=== PATIENT | female | born 1975 | race African-American/Black ===

== ENCOUNTER 2025-08-07 09:20 | Emergency (ER) | payer MEDICAID, OTHER ==
[~2025-08-07] VITALS: Ht 160 cm; Wt 63.5 kg
[2025-08-07] MEDS: IV NORMAL SALINE 1000 ML BAG IV ONE (10:01)
[2025-08-07 10:25] VITALS: BP 114/78
[2025-08-07] MEDS: METHYLERGONOVINE MALEATE 0.2 MG/ML AMP IM ONE (10:25)
[2025-08-07 10:26] LABS: PLATELET COUNT (AUTO) 215 K/uL (179-408); RED BLOOD CELL COUNT(AUTO) 3.21 MIL/uL (3.63-4.92); RED CELL DISTRIBUTION WIDTH 20.4 % (12.3-17.7); WHITE BLOOD COUNT (AUTO) 18.2 K/uL (3.8-11.8)
[2025-08-07 10:28] LABS: CREATININE 0.8 mg/dL (0.6-1.3); SODIUM SERUM 133.0 mmol/L (136-145); UREA NITROGEN, BLOOD 14.0 mg/dL (7-18)
[2025-08-07] MEDS ORDERED: MAGNESIUM SULFATE/D5W 200 ML ONE (11:17)
[2025-08-07] MEDS ORDERED: CHOLECALCIFEROL 1,000 UNIT TABLET ONE (11:17)
[2025-08-07] MEDS ORDERED: POTASSIUM BICARBONATE/CIT AC 25 MEQ TABLET.EFF ONE (11:17)
[2025-08-07] MEDS ORDERED: SOD FERRIC GLUC COMPLX/SUCROSE 62.5 MG/5 ML AMPUL IV ONE (11:17)
[2025-08-07] MEDS: MAGNESIUM SULFATE/D5W 100 ML IV SCH (11:18)
[2025-08-07] MEDS: SOD FERRIC GLUC COMPLX/SUCROSE 125 MG in IV NORMAL SALINE 100 ML IV SCH (11:20)
[2025-08-07] MEDS: CHOLECALCIFEROL 1,000 UNIT TABLET PO ONE (11:30)
[2025-08-07] MEDS: POTASSIUM BICARBONATE/CIT AC 25 MEQ TABLET.EFF PO ONE (11:34)
[2025-08-07 11:48] LABS: *BILIRUBIN,URIN NEGATIVE (NEGATIVE); *BLOOD, URINE 3+ (NEGATIVE); *CLARITY,URINE CLEAR (CLEAR); *COLOR,URINE YELLOW (YELLOW); *KETONES,URINE NEGATIVE (NEGATIVE); *PROTEIN,URINE 1+ (NEGATIVE); *UROBILINOGEN,URINE 0.2 E.U./dl (NORMAL); LEUKOCYTE ESTERASE ,URINE TRACE (NEGATIVE); NITRITE, URINE NEGATIVE (NEGATIVE); UGLUCOSE NEGATIVE (NEGATIVE)
[2025-08-07 12:03] LABS: SQUAMOUS EPITHELIAL CELL,UR FEW /HPF (NONE SEEN); URINE AMORPHOUS URATE FEW /HPF
[2025-08-07 12:08] LABS: LYMPHOCYTES % (MANUAL) 4 % (20-40); MONOCYTES % (MANUAL) 11 % (2-10); NEUTROPHILS % (MANUAL) 85 % (42-75); PLATELET ESTIMATE ADEQUATE
[2025-08-07] MEDS ORDERED: [UNRECOGNIZED DRUG - OTHER] PO ONE (13:30)
[2025-08-07] MEDS ORDERED: PROG200C9 PO (13:52)
[2025-08-07] MEDS ORDERED: SULFAMETH/TRIMETH 800/160 MG TABLET ONE (13:57)
[2025-08-07] MEDS ORDERED: SULF1TAB48 PO (13:59)
[2025-08-07] MEDS: SULFAMETH/TRIMETH 800/160 MG TABLET PO ONE (14:03)
[2025-08-07 14:08] VITALS: BP 111/70; O2SAT 99
[2025-08-07] MEDS ORDERED: POTA25TA7 PO (14:11)
[2025-08-07] MEDS ORDERED: HYDR-3980 PO (14:15)
[2025-08-07] MEDS ORDERED: HYDROCODONE/APAP 10-325 MG TABLET ONE (14:27)
[2025-08-07] MEDS: HYDROCODONE/APAP 10-325 MG TABLET PO ONE (14:28)
[2025-08-08] MEDS ORDERED: FERR325T23 PO (12:43)
== END 2025-08-07 14:51 | disposition home or self-care (01) ==
LOC: ER 09:29
DX: D62 Acute posthemorrhagic anemia (principal); E83.42 Hypomagnesemia; D50.9 Iron deficiency anemia, unspecified; E87.6 Hypokalemia; Z79.890 Hormone replacement therapy; Z88.0 Allergy status to penicillin; Z88.7 Allergy status to serum and vaccine; Z79.899 Other long term (current) drug therapy
CPT/HCPCS: 99284; 96365; 96361; 96366; 80048; 81001; 83735; 85007; 85027; 85044; 85730; 86850; 86900; 86901; 87086 ×2; 36415; 93005; 96368; 96372; J3475; J2916; J2210; J7040; 70030-TC; A4606; A4663

== ENCOUNTER 2025-08-08 11:06 | Emergency (ER) | payer OTHER ==
[~2025-08-08] VITALS: Ht 162.6 cm; Wt 59.0 kg
[~2025-08-08 11:06] MED LIST: HYDR-3980 PO; POTA25TA7 PO; PROG200C9 PO; SULF1TAB48 PO
[2025-08-08 11:08] VITALS: BP 118/83
[2025-08-08] MEDS ORDERED: SOD FERRIC GLUC COMPLX/SUCROSE 62.5 MG/5 ML AMPUL IV ONE (11:26)
[2025-08-08] MEDS: SOD FERRIC GLUC COMPLX/SUCROSE 125 MG in IV NORMAL SALINE 100 ML IV SCH (11:26)
[2025-08-08] MEDS ORDERED: FERR325T23 PO (12:43)
[2025-08-08 12:50] VITALS: BP 129/86; O2SAT 98
== END 2025-08-08 13:01 | disposition home or self-care (01) ==
LOC: ER 11:06
DX: D62 Acute posthemorrhagic anemia (principal); D25.9 Leiomyoma of uterus, unspecified; D50.9 Iron deficiency anemia, unspecified; Z79.890 Hormone replacement therapy; Z86.018 Personal history of other benign neoplasm; Z88.0 Allergy status to penicillin; Z88.7 Allergy status to serum and vaccine
CPT/HCPCS: 99284; 96365; J2916; A4606; A4663

== ENCOUNTER 2025-08-15 16:07 | Emergency (ER) | payer OTHER ==
[~2025-08-15] VITALS: Ht 165.1 cm; Wt 59.4 kg
[~2025-08-15 16:07] MED LIST changes: +FERR325T23 PO
[2025-08-15 19:37] LABS: PLATELET COUNT (AUTO) 560 K/uL (179-408); RED BLOOD CELL COUNT(AUTO) 2.88 MIL/uL (3.63-4.92); RED CELL DISTRIBUTION WIDTH 22.8 % (12.3-17.7); WHITE BLOOD COUNT (AUTO) 9.0 K/uL (3.8-11.8)
[2025-08-15 19:40] LABS: ASPARTATE AMINOTRANSFERASE 10 U/L (15-37); CREATININE 0.5 mg/dL (0.6-1.3); SODIUM SERUM 140 mmol/L (136-145); TOTAL PROTEIN, SERUM 6.8 g/dL (6.4-8.2); UREA NITROGEN, BLOOD 12 mg/dL (7-18)
[2025-08-15 19:42] LABS: IRON, SERUM 10 ug/dL (50-175)
[2025-08-15 23:35] LABS: *BILIRUBIN,URIN NEGATIVE (NEGATIVE); *BLOOD, URINE 2+ (NEGATIVE); *CLARITY,URINE CLEAR (CLEAR); *COLOR,URINE YELLOW (YELLOW); *KETONES,URINE NEGATIVE (NEGATIVE); *PROTEIN,URINE NEGATIVE (NEGATIVE); *UROBILINOGEN,URINE 0.2 E.U./dl (NORMAL); LEUKOCYTE ESTERASE ,URINE NEGATIVE (NEGATIVE); NITRITE, URINE NEGATIVE (NEGATIVE); UGLUCOSE NEGATIVE (NEGATIVE)
[2025-08-15 23:37] LABS: *URINE HCG, QUAL NEGATIVE (NEGATIVE)
[2025-08-15 23:43] LABS: SQUAMOUS EPITHELIAL CELL,UR MODERATE /HPF (NONE SEEN)
[2025-08-16 04:10] VITALS: BP 103/66
[2025-08-16] MEDS ORDERED: FERR324T11 PO (06:09)
[2025-08-16 06:31] VITALS: BP 103/66; TEMP 98; O2SAT 99
== END 2025-08-16 06:31 | disposition home or self-care (01) ==
LOC: ER 16:07
DX: D62 Acute posthemorrhagic anemia (principal); N93.9 Abnormal uterine and vaginal bleeding, unspecified; Z79.890 Hormone replacement therapy; Z86.018 Personal history of other benign neoplasm; Z88.0 Allergy status to penicillin; Z88.7 Allergy status to serum and vaccine; Z79.899 Other long term (current) drug therapy
CPT/HCPCS: 36415; 83550; 84703; 85025; 86850; 86900; 86901; 86920; A4606; A4663; P9016

== ENCOUNTER 2025-08-22 10:56 | Emergency (ER) | payer OTHER ==
[~2025-08-22 10:56] MED LIST changes: +FERR324T11 PO
== END 2025-08-22 11:16 | disposition left against medical advice (07) ==
LOC: ER 10:56
DX: Z53.21 Procedure and treatment not carried out due to patient leaving prior to being seen by health care provider (principal)